=== PATIENT | female | born 1950 | race African-American/Black ===

== ENCOUNTER 2016-06-03 11:06 | Emergency (ER) | payer OTHER ==
[~2016-06-03] VITALS: Ht 160 cm; Wt 90.9 kg
[~2016-06-03 11:06] MED LIST: CYCL-36 PO; NAPR550 PO; Z.0.NO CURRENT MEDS
[2016-06-03 11:12] VITALS: BP 203/97; PULSE 79; RESP 18; TEMP 98.2; O2SAT 97
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
[2016-06-03] MEDS ORDERED: NAPR500T PO (13:57)
[2016-06-03] MEDS ORDERED: ROBA500T PO (13:57)
[2016-06-03 13:59] VITALS: BP 148/69
== END 2016-06-03 14:13 | disposition home or self-care (01) ==
LOC: NEPB 11:06
DX: S16.1XXA Strain of muscle, fascia and tendon at neck level, initial encounter (principal); V43.52XA Car driver injured in collision with other type car in traffic accident, initial encounter; Y93.9 Activity, unspecified; Y92.9 Unspecified place or not applicable; Y99.9 Unspecified external cause status
CPT/HCPCS: 70450; 72125